=== PATIENT | male | born 1985 | race Caucasian/White ===

== ENCOUNTER 2021-07-13 08:26 | Observation (INO) ==
[2021-07-13] MEDS ORDERED: Ketorolac 30 MG/ML VIAL IVP ONE (09:36)
[2021-07-13] MEDS ORDERED: 0.9 % Sodium Chloride 1,000 ML IVC ONE (09:36)
[2021-07-13] MEDS ORDERED: Isovue-370 500 ML BOTTLE IVP ONE (09:36)
[2021-07-13 09:58] LABS: Basophils # 0.1 K/mcL (0.0-0.2); Basophils % 1.1 %; Eosinophils # 0.3 K/mcL (0.0-0.6); Eosinophils % 3.8 %; Hematocrit 46.7 % (37.5-50.1); Hemoglobin 15.1 g/dL (12.9-16.9); Immature Granulocytes % 0.3 % (0-4); Lymphocytes # 1.2 K/mcL (0.6-4.6); Mean Corpuscular HGB Conc 32.3 g/dL (31.6-35.5); Mean Corpuscular Hemoglobin 32.2 pg (28.0-33.3); Mean Corpuscular Volume 99.6 fL (83.0-100.0); Mean Platelet Volume 9.7 fL (9.4-12.4); Monocytes # 0.5 K/mcL (0.0-1.3); Monocytes % 8.1 %; Neutrophils # 4.6 K/mcL (1.6-8.9); Platelet Count 208 K/mcL (140-400); Red Blood Count 4.69 M/mcL (4.19-5.50); Red Cell Distribution Width 13.1 % (11.5-14.5); Segmented Neutrophils % 68.7 %; White Blood Count 6.7 K/mcL (4.3-11.1)
[2021-07-13 10:07] LABS: INR 0.9; Prothrombin Time 10.4 Seconds (9.4-12.1)
[2021-07-13 10:22] LABS: Alanine Aminotransferase 22 Units/L (7-52); Albumin 4.7 g/dL (3.5-5.7); Alkaline Phosphatase 97 Units/L (34-104); Aspartate Amino Transferase 16 Units/L (13-39); BUN/Creatinine Ratio 11 (6-26); Bilirubin,Indirect 0.3 mg/dL (0.0-1.0); Bilirubin,Total 0.3 mg/dL (0.3-1.0); Blood Urea Nitrogen 10 mg/dL (6-20); Calcium 9.8 mg/dL (8.6-10.3); Carbon Dioxide 27 mEq/L (23-29); Chloride 107 mEq/L (98-107); Globulin 2.4 g/dL (2.4-3.5); Glucose 98 mg/dL (70-105); Lipase 40 Units/L (11-82); Osmolality,Calculated 289 (280-300); Potassium 3.7 mEq/L (3.5-5.1); Sodium 140 mEq/L (136-145); Total Protein 7.1 g/dL (6.4-8.9); Troponin I < 0.03 ng/mL (< 0.04); eGFR For African Americans > 60 (> 60); eGFR For Non-African Americans > 60 (> 60)
[2021-07-13] MEDS ORDERED: Morphine Sulfate 2 MG/ML SYRINGE IVP ONE (10:58)
[2021-07-13 11:01] LABS: Bilirubin,Urine Negative (Negative); Blood,Urine Negative (Negative); Clarity,Urine Clear (Clear); Color,Urine Light-Yellow (Yellow); Glucose,Urine (UA) Normal (Normal); Ketones,Urine Negative (Negative); Leukocyte Esterase,Urine Negative (Negative); Nitrite,Urine Negative (Negative); Protein,Urine Trace mg/dL (Neg-Trace); Specific Gravity,Urine 1.027 (1.010-1.025); Urobilinogen,Urine Normal (Normal)
[2021-07-13] MEDS ORDERED: *HR* HYDROmorphone (PF) 1 MG/ML SYRINGE IVP ONE ×2 (12:12→13:53)
[2021-07-13] MEDS ORDERED: Ondansetron 4 MG/2 ML VIAL IVP PRN ×2 (14:10→21:11)
[2021-07-13] MEDS ORDERED: Naloxone 0.4 MG/ML INJ IVP PRN ×2 (14:10→21:11)
[2021-07-13] MEDS ORDERED: Morphine Sulfate 2 MG/ML SYRINGE IVP PRN (14:13)
[2021-07-13] MEDS ORDERED: Ringers Solution, Lactated 1,000 ML IVC SCH (14:15)
[2021-07-13] MEDS ORDERED: SUMAtriptan succinate 50 MG TABLET PO PRN ×2 (14:30→21:11)
[2021-07-13] MEDS: Gabapentin 300 MG CAPSULE PO SCH ×2 (15:49→21:07)
[2021-07-13] MEDS ORDERED: Pregabalin 75 MG CAPSULE PO ONE (16:03)
[2021-07-13] MEDS ORDERED: Acetaminophen IV 1,000 MG/100 ML BAG IVPB ONE ×3 (16:03→21:11)
[2021-07-13] MEDS ORDERED: Promethazine Syrup 6.25 MG/5 ML PO PRN ×2 (16:03→21:11)
[2021-07-13] MEDS ORDERED: *HR* HYDROmorphone PF 0.5 MG/0.5 ML SYRINGE IVP PRN ×2 (16:03→21:11)
[2021-07-13] MEDS ORDERED: *HR* OxyCODONE Immed Rel 5 MG TABLET PO PRN ×2 (16:03→21:11)
[2021-07-13] MEDS ORDERED: Famotidine 20 MG/2 ML VIAL IVP ONE ×2 (16:03→21:11)
[2021-07-13] MEDS ORDERED: *HR* Labetalol 20 MG/4 ML SYRINGE IVP PRN ×2 (16:03→21:11)
[2021-07-13] MEDS ORDERED: Lidocaine -MPF 2% 5 ML VIAL ONE (16:10)
[2021-07-13] MEDS ORDERED: *HR* Propofol 200 MG/20 ML VIAL IVP ONE (16:10)
[2021-07-13] MEDS ORDERED: *HR* Rocuronium Bromide 50 MG/5 ML VIAL ONE (16:10)
[2021-07-13] MEDS ORDERED: *HR* Midazolam HCl 2 MG/2 ML VIAL ONE (16:10)
[2021-07-13] MEDS ORDERED: Lidocaine -MPF 4% 5 ML AMPUL ONE (16:10)
[2021-07-13] MEDS ORDERED: *HR* FentaNYL (PF) 100 MCG/2 ML VIAL ONE (16:10)
[2021-07-13] MEDS ORDERED: Ondansetron 4 MG/2 ML VIAL ONE (16:10)
[2021-07-13] MEDS ORDERED: CeFAZolin Syr 2,000MG/20 ML 2,000 MG/20 ML SYRINGE IVPB ONE ×2 (17:45→21:11)
[2021-07-13] MEDS ORDERED: Famotidine 20 MG/2 ML VIAL ONE (17:50)
[2021-07-13] MEDS ORDERED: Dexmedetomidine HCl 400 MCG/100 ML MLS IVC ONE (17:50)
[2021-07-13] MEDS ORDERED: *HR* HYDROMORPHONE 2 MG/ML VIAL ONE (18:38)
[2021-07-13] MEDS ORDERED: Sugammadex Sodium 200 MG/2 ML VIAL IV ONE (18:44)
[2021-07-13] MEDS ORDERED: QUEtiapine Fumarate 300 MG TABLET PO SCH (20:00)
[2021-07-13] MEDS ORDERED: Mirtazapine 15 MG TABLET PO SCH (20:00)
[2021-07-13] MEDS ORDERED: traZODone 50 MG TABLET PO SCH (20:00)
[2021-07-13] MEDS: Morphine Sulfate 2 MG/ML SYRINGE IVP PRN (21:57)
[2021-07-13] MEDS: Ringers Solution, Lactated 1,000 ML IVC SCH (22:06)
[2021-07-14 01:06] LABS: Basophils % 0.3 %; Eosinophils % 0.3 %; Hematocrit 39.3 % (37.5-50.1); Immature Granulocytes % 0.3 % (0-4); Lymphocytes # 0.5 K/mcL (0.6-4.6); Lymphocytes % 6.9 %; Mean Corpuscular HGB Conc 32.3 g/dL (31.6-35.5); Mean Corpuscular Hemoglobin 32.2 pg (28.0-33.3); Mean Corpuscular Volume 99.5 fL (83.0-100.0); Mean Platelet Volume 9.6 fL (9.4-12.4); Monocytes # 0.2 K/mcL (0.0-1.3); Monocytes % 2.5 %; Neutrophils # 5.8 K/mcL (1.6-8.9); Platelet Count 156 K/mcL (140-400); Red Blood Count 3.95 M/mcL (4.19-5.50); Red Cell Distribution Width 12.8 % (11.5-14.5); Segmented Neutrophils % 89.7 %; White Blood Count 6.5 K/mcL (4.3-11.1)
[2021-07-14 01:08] LABS: Hemoglobin 12.7 g/dL (12.9-16.9)
[2021-07-14 01:28] LABS: BUN/Creatinine Ratio 11 (6-26); Blood Urea Nitrogen 7 mg/dL (6-20); Calcium 8.8 mg/dL (8.6-10.3); Carbon Dioxide 23 mEq/L (23-29); Chloride 110 mEq/L (98-107); Cholesterol 128 mg/dL (< 200); Glucose 182 mg/dL (70-105); HDL Cholesterol 43 mg/dL (40-59); LDL Cholesterol,Calculated 77 mg/dL (< 100); Osmolality,Calculated 291 (280-300); Potassium 3.9 mEq/L (3.5-5.1); Sodium 139 mEq/L (136-145); Triglycerides 38 mg/dL (< 150); eGFR For African Americans > 60 (> 60); eGFR For Non-African Americans > 60 (> 60)
[2021-07-14 01:29] LABS: Albumin 3.7 g/dL (3.5-5.7); Albumin/Globulin Ratio 1.9 (1.1-2.2); Bilirubin,Direct 0.1 mg/dL (0.0-0.2); Bilirubin,Indirect 0.3 mg/dL (0.0-1.0); Bilirubin,Total 0.4 mg/dL (0.3-1.0); Total Protein 5.7 g/dL (6.4-8.9)
[2021-07-14] MEDS: Morphine Sulfate 2 MG/ML SYRINGE IVP PRN (04:35)
[2021-07-14 07:40] VITALS: TEMP 98.4
[2021-07-14] MEDS ORDERED: Venlafaxine XR (24 HR) 75 MG CAP.ER.24H PO SCH ×2 (08:00)
[2021-07-14] MEDS ORDERED: Gabapentin 300 MG CAPSULE PO SCH (08:00)
[2021-07-14] MEDS ORDERED: QUEtiapine Fumarate 25 MG TABLET PO SCH ×2 (08:00)
[2021-07-14 10:20] VITALS: BP 106/70; PULSE 90; O2SAT 97
[2021-07-14] MEDS: Ringers Solution, Lactated 1,000 ML IVC SCH (11:30)
[2021-07-14] MEDS ORDERED: Mirtazapine 15 MG TABLET PO SCH (20:00)
[2021-07-14] MEDS ORDERED: traZODone 50 MG TABLET PO SCH (20:00)
[2021-07-14] MEDS ORDERED: QUEtiapine Fumarate 300 MG TABLET PO SCH (20:00)
== END 2021-07-14 12:16 | disposition home or self-care (01) ==
LOC: EMEROOARM 08:26 → 3ANU 08:26 → SUATTDRO 13:57 → 3ANU 15:25
PROVIDERS: ADMIT Family Medicine; ATTEND Family Medicine